=== PATIENT | female | born 1955 | race Caucasian/White ===

== ENCOUNTER 2016-09-13 09:47 | Emergency (ER) | payer OTHER ==
[~2016-09-13] VITALS: Ht 160 cm; Wt 66.1 kg
[~2016-09-13 09:47] MED LIST: ADVA250A INH; HYDR-3133 PO; IPRA17I INH; PRED20 PO; RISP2TAB SL; SERT-129 PO
[2016-09-13 09:57] VITALS: BP 107/72; PULSE 93; RESP 16; TEMP 98; O2SAT 99
--- NOTE | 2016-09-13 10:17 | PD ---
HPI Chief Complaint: Pain: Acute or Chronic Time Seen by Provider: 10:01 Travel History International Travel<30 days: No Contact w/Intl Traveler<30days: No Traveled to known affect area: No History of Present Illness HPI 60 year-old woman presents emergency department complaining of chest wall pain after she fell 3 weeks ago. State or fecal, tangled she fell forward landing on her chest. She has pain on both sides of her chest but more on the right than the left. Worse with coughing or deep breathing. Symptoms been persistent and not really getting better so she came in today. She does have some shortness of breath. She is a history of eczema and she is on steroids 20 mg every other day for quite some time. She has asthma but doesn't really have a lot of trouble with it. She otherwise has been feeling generally well and healthy. No other complaints. History Past Medical History Narrative Medical Eczema Asthma Bipolar disorder Menopausal: Yes Social History Alcohol Use: Yes (BEER, OCCASIONAL) Tobacco Use: Yes (1/2PK CIGARS) Allergies-Medications (Allergen,Severity, Reaction): Coded Allergies: Penicillin (Verified Allergy, Severe, Rash, 09/13/16) Ventolin (Verified Allergy, Severe, Swelling, 09/13/16) Sulfa (Verified Allergy, Unknown, 09/13/16) Reported Meds & Prescriptions Reported Meds & Active Scripts Active Reported Prednisone 10 Mg Tab 10 Mg PO EVERY OTHER DAY Risperidone M-Tab (Risperidone) 2 Mg Tab 2 Mg SL Q12HR Atrovent HFA 12.9 GM Inh (Ipratropium [place]) 17 Mcg/Act Aer 2 Puff INH TID Advair Diskus Inh (Fluticasone-Salmeterol Inh) 250-50 Mcg/Blist Aer 1 Puff INH BID Rinse mouth after use. Sertraline (Sertraline HCl) 100 Mg Tab 100 Mg PO DAILY Review of Systems Except as stated in HPI: all other systems reviewed are Neg Physical Exam Narrative GENERAL: Well-appearing 61-year-old woman, no acute distress. SKIN: Warm and dry. NECK: Trachea midline. No JVD. CARDIOVASCULAR: Regular rate and rhythm. No murmur appreciated. RESPIRATORY: No accessory muscle use. Clear to auscultation. Breath sounds equal bilaterally. GASTROINTESTINAL: Abdomen soft, non-tender, nondistended. Hepatic and splenic margins not palpable. MUSCULOSKELETAL: No obvious deformities. Some chest wall tenderness on the right. No ecchymosis or bruising. Data Data Last Documented VS Vital Signs Date Time Temp Pulse Resp B/P Pulse Ox O2 Delivery O2 Flow Rate FiO2 09/13/16 11:25 62 16 104/67 97 09/13/16 09:57 98.0 Orders Chest, Pa & Lat (09/13/16 ) [facility] Medical Decision Making Medical Screen Exam Complete: Yes Emergency Medical Condition: Yes Interpretation(s) Chest x-ray: Prominent but woke up with a heart. Minimal bibasilar atelectatic changes. Lungs are otherwise clear. Differential Diagnosis Chest wall pain, contusion, fracture, pneumothorax, other Narrative Course Medical decision-making 58-year-old presents emergent department with chest wall pain after falling 2 weeks ago. She likely had cracked ribs. We'll check x-ray rule out pneumothorax. Recommend continue supportive treatment. She states she's had some heartburn as well. She is on steroids daily that could be contributing. I don't see any evidence this is angina. Outpatient follow-up. Diagnosis Primary Impression: Chest wall pain Additional Instructions: Take extra strength Tylenol as needed for chest wall pain. Consider taking ranitidine when you're taking prednisone help with her heartburn. Return to the emergency department for any worsening chest pain, if he noticed her chest pain is worse with exertion, he develop any worsening shortness of breath, or if you have any other new or worsening symptoms. Disposition: 01 DISCHARGE HOME Condition: Stable Esau Franco MD Sep 13, 2016 10:17
[2016-09-13] MEDS ORDERED: PRED10 PO (10:18)
--- NOTE | 2016-09-13 11:09 | RADHPO ---
EXAM DATE/TIME: 09/13/2016 10:40 [facility] COMPARISON: No previous studies available for comparison. INDICATIONS : Chest pains. MEDICAL HISTORY : None. SURGICAL HISTORY : None. ENCOUNTER: Initial ACUITY: 3 weeks PAIN SCORE: 7/10 LOCATION: lower chest right side. FINDINGS: PA and lateral views of the chest demonstrate the lungs to be symmetrically aerated without evidence of mass, infiltrate or effusion. Minimal bibasilar atelectatic changes. Heart size is prominent but w ell compensated. Osseous structures are intact. CONCLUSION: 1. Prominent but well compensated heart. 2. Minimal bibasilar atelectatic changes. Lungs are otherwise clear. Meet Rodríguez MD on September 13, 2016 at 11:06 Board Certified Radiologist. This report was verified electronically.
[2016-09-13 11:25] VITALS: BP 104/67; PULSE 62; RESP 16; O2SAT 97
== END 2016-09-13 11:52 | disposition home or self-care (01) ==
LOC: PHEFT 09:47
DX: R07.89 Other chest pain (principal); J45.909 Unspecified asthma, uncomplicated; F17.290 Nicotine dependence, other tobacco product, uncomplicated; W19.XXXA Unspecified fall, initial encounter; Y93.9 Activity, unspecified; Y92.9 Unspecified place or not applicable; Y99.8 Other external cause status
CPT/HCPCS: 71020; 99283

== ENCOUNTER 2017-05-18 17:24 | Emergency (ER) | payer OTHER ==
[~2017-05-18 17:24] MED LIST changes: -HYDR-3133 PO; +PRED10 PO; -PRED20 PO
[2017-05-18 17:45] VITALS: BP 135/63; PULSE 98; RESP 18; TEMP 98.1; O2SAT 99
--- NOTE | 2017-05-18 18:12 | PD ---
HPI Chief Complaint: Injury Time Seen by Provider: 17:46 Travel History International Travel<30 days: No Contact w/Intl Traveler<30days: No Traveled to known affect area: No History of Present Illness HPI 62-year-old female here for evaluation of right shoulder and right elbow pain times 4 hours. She reports she slipped while going down the steps falling onto her right side against the wall. She denies head injury or loss of consciousness. She reports she did not fall to the ground. She denies paresthesia or weakness of the extremity. She has pain with range of motion of the shoulder and mild pain at the lateral aspect of the elbow. The pain is relieved with rest. She denies any other injuries. PFSH Past Medical History Asthma: Yes Bipolar Disorder: Yes Depression: Yes COPD: Yes Diminished Hearing: No Integumentary: Yes (ECZEMA) Immunizations Current: No Tetanus Vaccination: < 5 Years Influenza Vaccination: No ?: Not Menopausal: Yes Past Surgical History Abdominal Surgery: Yes (LT HERNIA REPAIR X 2) Cholecystectomy: Yes Eye Surgery: Yes (Premature bilateral cataracts-lens 44 yrs old) Hysterectomy: Yes (Partial) Social History Alcohol Use: Yes (socially ) Tobacco Use: Yes (3/4 ppd ) Substance Use: No Allergies-Medications (Allergen,Severity, Reaction): Coded Allergies: albuterol (Unverified Allergy, Severe, Swelling, 05/18/17) penicillin G (Unverified Allergy, Severe, Rash, 05/18/17) Sulfa (Sulfonamide Antibiotics) (Unverified Allergy, Unknown, 05/18/17) Reported Meds & Prescriptions Reported Meds & Active Scripts Active [place] (Hydrocodone-Acetaminophen) 5 Mg-325 Mg Tab 1 Tab PO Q6H PRN Reported Risperidone M-Tab (Risperidone) 2 Mg Tab 2 Mg SL Q12HR Atrovent HFA 12.9 GM Inh (Ipratropium [place]) 17 Mcg/Act Aer 2 Puff INH TID Sertraline (Sertraline HCl) 100 Mg Tab 100 Mg PO DAILY Review of Systems Except as stated in HPI: all other systems reviewed are Neg HENT: No: Headaches Cardiovascular: No: Chest Pain or Discomfort Respiratory: No: Shortness of Breath Gastrointestinal: No: Abdominal Pain Genitourinary: No: Dysuria Physical Exam Narrative GENERAL: Well-nourished, well-developed patient. SKIN: Focused skin assessment warm/dry. HEAD: Normocephalic. Atraumatic EYES: No scleral icterus. No injection or drainage. NECK: Supple, trachea midline. No cervical midline tenderness CARDIOVASCULAR: Regular rate and rhythm without murmurs, gallops, or rubs. Chest wall tenderness RESPIRATORY: Breath sounds equal bilaterally. No accessory muscle use. GASTROINTESTINAL: Abdomen soft, non-tender, nondistended. MUSCULOSKELETAL: No cyanosis, or edema. Attention to the right upper extremity : Tenderness of the anterior and lateral shoulder. No bony tenderness of the elbow. No deformity noted. The arm is held in slight flexion against the body. Limited abduction of the shoulder due to pain. 2+ distal pulses. Normal sensation. Brisk cap refill. BACK: No tenderness of the cervical, thoracic, lumbar spine. Without obvious deformity. No CVA tenderness. Data Data Last Documented VS Vital Signs Date Time Temp Pulse Resp B/P (MAP) Pulse Ox O2 Delivery O2 Flow Rate FiO2 05/18/17 17:48 Room Air 05/18/17 17:45 98.1 98 18 135/63 (87) 99 Orders Orders Shoulder, Complete (>2vws) (05/18/17 ) Elbow, Limited (Ap&Lat) (05/18/17 ) Support Splint (05/18/17 19:01) Ketorolac Inj (Toradol Inj) (05/18/17 19:15) MDM Medical Decision Making Medical Screen Exam Complete: Yes Emergency Medical Condition: Yes Differential Diagnosis fracture versus dislocation versus strain versus contusion Narrative Course 62-year-old female here with right shoulder and elbow pain after slip and fall landing on the nearby wall. She denies head injury or loss of consciousness. On exam she has tenderness to anterior aspect of the shoulder. No bony tenderness of the elbow. No deformity noted. Extremities neurovascularly intact. X-rays ordered and pending X-ray shoulder: Probable nondisplaced fracture of the greater tuberosity X-ray of right elbow: Elbow effusion may represent an occult fracture. X-ray findings discussed with patient. Elbow was reevaluated and is nontender to palpation and she has full range of motion. I do not believe she has a fracture within the elbow. Patient will be put in a sling. Pain medication. Follow-up with orthopedic. Diagnosis Primary Impression: Greater tuberosity of humerus fracture Qualified Codes: S42.254A - Nondisplaced fracture of greater tuberosity of right humerus, initial encounter for closed fracture Referrals: Orthopaedic Surgeon Additional Instructions: With a sling at all times until follow-up with orthopedic doctor. Take [id number] Motrin as needed for pain. Take the hydrocodone for severe pain. Call and make an appointment with the orthopedic doctor. Return to emergency department if he developed new or worsening symptoms. Scripts Hydrocodone-Acetaminophen ([place]) 5 Mg-325 Mg Tab 1 TAB PO Q6H Y for PAIN, #15 TAB 0 Refills Prov: Samy Ball MD 05/18/17 Disposition: DISCHARGE HOME Condition: Stable Laure Mercer May 18, 2017 18:12
--- NOTE | 2017-05-18 18:23 | RADRPT ---
EXAM DATE/TIME: 05/18/2017 18:00 [facility] COMPARISON: No previous studies available for comparison. INDICATIONS : Right shoulder pain post fall. MEDICAL HISTORY : None. SURGICAL HISTORY : None. ENCOUNTER: Initial ACUITY: 1 day PAIN SCORE: 8/10 LOCATION: Right upper extremity FINDINGS: 4 view examination demonstrates diffuse osteopenia. On the frontal views, there is a thin lucency wh ich parallels the greater tuberosity and may represent a nondisplaced fracture. The glenohumeral sherlyn nt is in normal alignment. The a.c. joint demonstrates mild changes. The visualized right ribs are intact. CONCLUSION: Probable nondisplaced fracture of the greater tuberosity. Stephen Acosta MD on May 18, 2017 at 18:20 Board Certified Radiologist. This report was verified electronically.
--- NOTE | 2017-05-18 18:25 | RADRPT ---
EXAM DATE/TIME: 05/18/2017 18:00 [facility] COMPARISON: No previous studies available for comparison. INDICATIONS : Right elbow pain post fall. MEDICAL HISTORY : None. SURGICAL HISTORY : None. ENCOUNTER: Initial ACUITY: 1 day PAIN SCORE: 8/10 LOCATION: Right upper extremity FINDINGS: Two view examination of the right elbow demonstrates no soft tissue swelling, fracture or dislocation . Bony mineralization is mildly decreased. There is a triangular configuration to the anterior fat pad suggesting possible elbow effusion. An amorphous oval opacity in the soft tissues superficial to the olecranon measures 3 mm. CONCLUSION: 1. Radiographic evidence suggesting an elbow effusion. Elbow effusion can be an indication of an occ ult radiographic fracture. 2. 3 mm amorphous density in the soft tissues about the olecranon may represent foreign body. Stephen Acosta MD on May 18, 2017 at 18:21 Board Certified Radiologist. This report was verified electronically.
[2017-05-18] MEDS ORDERED: NORC5TAB PO (19:00)
[2017-05-18] MEDS ORDERED: KETOROLAC TROMETHAMINE 60 MG/2 ML (IM) VIAL IM ONE (19:15)
== END 2017-05-18 19:18 | disposition home or self-care (01) ==
LOC: PHEFT 17:24
DX: S42.254A Nondisplaced fracture of greater tuberosity of right humerus, initial encounter for closed fracture (principal); W10.9XXA Fall (on) (from) unspecified stairs and steps, initial encounter
CPT/HCPCS: 73030; 73070; 96372; 99284; J1885

== ENCOUNTER 2017-12-11 10:24 | Inpatient (IN) | payer OTHER ==
[2017-12-11] VITALS (15 sets, daily range): BP systolic 95–143; BP diastolic 50–68; PULSE 61–79; RESP 16–20; TEMP 96–98.4; O2SAT 96–100
[~2017-12-11] VITALS: Ht 157.5 cm; Wt 67.1 kg
[~2017-12-11 10:24] MED LIST changes: -ADVA250A INH; +DUPI300S SQ; +NORC5TAB PO; -PRED10 PO
--- NOTE | 2017-12-11 11:05 | PD ---
HPI Chief Complaint: Abnormal Results Time Seen by Provider: 11:04 Travel History International Travel<30 days: No Contact w/Intl Traveler<30days: No Traveled to known affect area: No History of Present Illness HPI Patient states that she has been experiencing lightheadedness or dizziness for months now so she did not think that there was anything different. Patient went in for her regular 6-month checkup when she had blood work done. Her primary care doctor is Dr. Fredi Watson, and upon arriving at the clinic she was told that she needed to come to the ER immediately because of her abnormal labs. Apparently her hemoglobin was 4.5. Patient denies any abdominal pain, nausea, vomiting or diarrhea. However she does mention that she has seen intermittent black tarry stools on and off over the past few months. But they would usually resolve and so she did not think much of it. Patient states that she takes Naprosyn regularly at least once a day for shoulder arthritis. Allergy to sulfa albuterol penicillin Past medical history significant for bilateral cataract surgery, corrective lenses, asthma, COPD, left hernia repair 2, cholecystectomy, partial hysterectomy, bipolar disorder, eczema PFSH Past Medical History Asthma: Yes Bipolar Disorder: Yes Depression: Yes COPD: Yes Diminished Hearing: No Respiratory: Yes (Asthma) Integumentary: Yes (ECZEMA) Immunizations Current: No ?: Not Menopausal: Yes Past Surgical History Abdominal Surgery: Yes (LT HERNIA REPAIR X 2) Cholecystectomy: Yes Eye Surgery: Yes (Premature bilateral cataracts-lens 44 yrs old) Hysterectomy: Yes (Partial) Social History Alcohol Use: Yes (socially ) Tobacco Use: Yes (3/4 ppd ) Substance Use: No Allergies-Medications (Allergen,Severity, Reaction): Coded Allergies: albuterol (Unverified Allergy, Severe, Swelling, 12/11/17) PT states she is no longer allergic to it penicillin G (Unverified Allergy, Severe, Rash, 12/11/17) Sulfa (Sulfonamide Antibiotics) (Unverified Allergy, Unknown, 12/11/17) Reported Meds & Prescriptions Reported Meds & Active Scripts Active Reported Naproxen 500 Mg Tab 500 Mg PO BID PRN Risperidone M-Tab (Risperidone) 2 Mg Tab 2 Mg SL Q12HR Atrovent HFA 12.9 GM Inh (Ipratropium [place]) 17 Mcg/Act Aer 2 Puff INH TID Sertraline (Sertraline HCl) 100 Mg Tab 100 Mg PO DAILY Review of Systems General / Constitutional: No: Fever Eyes: No: Visual changes HENT: Positive: Lightheadedness Cardiovascular: No: Chest Pain or Discomfort Respiratory: No: Shortness of Breath Gastrointestinal: No: Abdominal Pain Genitourinary: No: Dysuria Musculoskeletal: No: Pain Skin: No Rash Neurologic: No: Weakness Psychiatric: No: Depression Endocrine: No: Polydipsia Hematologic/Lymphatic: No: Easy Bruising Physical Exam Narrative GENERAL: SKIN: Warm and dry. HEAD: Atraumatic. Normocephalic. EYES: Pupils equal and round. No scleral icterus. No injection or drainage. ENT: No nasal bleeding or discharge. Mucous membranes pink and moist. NECK: Trachea midline. No JVD. CARDIOVASCULAR: Regular rate and rhythm. RESPIRATORY: No accessory muscle use. Clear to auscultation. Breath sounds equal bilaterally. GASTROINTESTINAL: Abdomen soft, non-tender, nondistended. RN at bedside, no external fissures or hemorrhoids that were actively bleeding. On digital rectal exam stool was not bloody red but guaiac trace positive MUSCULOSKELETAL: Extremities without clubbing, cyanosis, or edema. No obvious deformities. NEUROLOGICAL: Awake and alert. No obvious cranial nerve deficits. Motor grossly within normal limits. Five out of 5 muscle strength in the arms and legs. Normal speech. PSYCHIATRIC: Appropriate mood and affect; insight and judgment normal. Data Data Last Documented VS Vital Signs Date Time Temp Pulse Resp B/P (MAP) Pulse Ox O2 Delivery O2 Flow Rate FiO2 12/11/17 11:46 16 97 Room Air 12/11/17 11:07 66 12/11/17 10:51 98.4 96/50 (65) Orders Orders Electrocardiogram (12/11/17 11:05) Complete Blood Count With Diff (12/11/17 11:05) Comprehensive Metabolic Panel (12/11/17 11:05) Ckmb (Isoenzyme) Profile (12/11/17 11:05) Troponin I (12/11/17 11:05) Prothrombin Time / Inr (Pt) (12/11/17 11:05) Act Partial Throm Time (Ptt) (12/11/17 11:05) Lipase (12/11/17 11:05) Thyroid Stimulating Hormone (12/11/17 11:05) Chest, Single Ap (12/11/17 11:05) Iv Access Insert/Monitor (12/11/17 11:05) Ecg Monitoring (12/11/17 11:05) Oximetry (12/11/17 11:05) Type And Screen (12/11/17 11:05) Labs Laboratory Tests Test 12/11/17 11:35 [facility] Medical Decision Making Medical Screen Exam Complete: Yes Emergency Medical Condition: Yes Medical Record Reviewed: Yes Interpretation(s) EKG shows a normal sinus rhythm at 61 bpm with sinus arrhythmia, right bundle branch block, left anterior fascicular block but without any ST elevation elev pattern,nor any T wave inversions. Differential Diagnosis Anemia versus STEMI versus non-STEMI versus dehydration versus GI bleed Mario Russell MD Dec 11, 2017 11:05
[2017-12-11] MEDS ORDERED: NAPR500T2 PO (11:23)
--- NOTE | 2017-12-11 11:42 | RADRPT ---
EXAM DATE: 12/11/2017 11:15 AM EDT AGE/SEX: 62 years / Female INDICATIONS: Shortness of breath. CLINICAL DATA: This is the patient's initial encounter. Patient reports that signs and symptoms have been present for 3 months and indicates a pain score of 0/10. MEDICAL/SURGICAL HISTORY: Asthma. Chronic obstructive pulmonary disease. Inguinal hernia repai r. COMPARISON: [facility], CHEST SINGLE AP, 12/04/2014. . FINDINGS: A single AP view of the chest demonstrates the lungs to be symmetrically aerated without evidence of mass, infiltrate or effusion. The heart size is mildly enlarged but stable.. Osseous structures are intact. No significant changes. CONCLUSION: No acute intrathoracic disease. Stable cardiomegaly. No significant changes. Electronically signed by: Bhanu Hurst MD 12/11/2017 11:41 AM EDT
[2017-12-11 11:55] LABS: MEAN CELL VOLUME 60.5 FL (80.0-100.0); MEAN CORPUSCULAR HEMOGLOBIN 17.6 PG (27.0-34.0); MEAN PLATELET VOLUME 7.6 FL (7.0-11.0); PLATELET COUNT 278 TH/MM3 (150-450); RED BLOOD COUNT 2.65 MIL/MM3 (4.00-5.30); RED CELL DISTRIBUTION WIDTH 21.9 % (11.6-17.2); WHITE BLOOD COUNT 2.8 TH/MM3 (4.0-11.0)
[2017-12-11 12:18] LABS: MEAN CORPUSCULAR HGB CONC 29.1 % (32.0-36.0)
[2017-12-11 12:22] LABS: HEMOGLOBIN 4.7 GM/DL (11.6-15.3)
[2017-12-11 12:25] LABS: CHLORIDE 103 MEQ/L (98-107); SODIUM (NA) 135 MEQ/L (136-145)
[2017-12-11 12:28] LABS: CALCIUM 7.9 MG/DL (8.5-10.1)
[2017-12-11 12:29] LABS: ALBUMIN 3.6 GM/DL (3.4-5.0); BICARBONATE 23.9 MEQ/L (21.0-32.0); BLOOD UREA NITROGEN 10 MG/DL (7-18); GLUCOSE,RANDOM 84 MG/DL (74-106)
[2017-12-11 12:30] LABS: PROTHROMBIN TIME - PATIENT 10.6 SEC (9.8-11.6)
[2017-12-11 12:32] LABS: ALT (GPT) 13 U/L (10-53); AST (GOT) 9 U/L (15-37); CREATININE 0.54 MG/DL (0.50-1.00); GLOMERULAR FILTRATION RATE 114 ML/MIN (>89)
[2017-12-11 12:33] LABS: TOTAL BILIRUBIN ADULT 0.4 MG/DL (0.2-1.0); TOTAL PROTEIN 6.6 GM/DL (6.4-8.2)
[2017-12-11 12:34] LABS: ALKALINE PHOSPHATASE 61 U/L (45-117)
[2017-12-11 12:37] LABS: TROPONIN I LESS THAN 0.02 NG/ML (0.02-0.05)
[2017-12-11] MEDS ORDERED: SODIUM CHLOR 0.9% 250 ML INJ 250 ML IV ONE (13:00)
[2017-12-11] MEDS ORDERED: BISACODYL 10 MG SUPP RECTAL PRN (13:00)
[2017-12-11] MEDS ORDERED: MAGNESIUM HYDROXIDE SUSP 30 ML CUP PO PRN (13:00)
[2017-12-11] MEDS ORDERED: SODIUM CHLORIDE 0.9% FLUSH 10 ML FLUSH IV FLUSH PRN (13:00)
[2017-12-11] MEDS ORDERED: NALOXONE HCL 0.4 MG/ML AMP IV PUSH PRN (13:00)
[2017-12-11] MEDS ORDERED: ACETAMINOPHEN 325 MG TAB PO PRN (13:00)
[2017-12-11] MEDS ORDERED: LACTULOSE SYRUP 20 GM/30 ML CUP PO PRN (13:00)
[2017-12-11] MEDS ORDERED: SENNOSIDES 8.6 MG TAB PO PRN (13:00)
[2017-12-11 13:02] LABS: LYMPHOCYTES 22 % (9-44); MONOCYTES 6 % (0-8); POLYS (SEG NEUTROPHILS) 70 % (16-70)
[2017-12-11 13:03] LABS: ROULEAUX PRESENT (NORMAL)
--- NOTE | 2017-12-11 16:35 | HHI.HP ---
HPI Service [facility] Primary Care Physician Denver Watson MD (Paul) Admission Diagnosis SEVERE ANEMIA, TRACE GI BLEED Diagnoses: Chief Complaint: Anemia, dizziness, lightheadedness Travel History International Travel<30 Days: No Contact w/Intl Traveler <30 Da: No Traveled to Known Affected Are: No History of Present Illness Ms. Vela is a pleasant 62-year-old female with a history of bipolar disorder, asthma who presents to the emergency department due to low hemoglobin count noted by her psychiatrist. Patient had blood work on 2017 and subsequently she went to see her psychiatrist on 12/10/2017. Her psychiatrist advised patient to seek medical help due to hemoglobin 4.5. Upon further discussion, patient reports that she has been feeling weak, dizziness and lightheadedness as well as dyspnea for at least 2 months. She was on iron pills but stopped taking it 2 weeks ago. She reports some bleed when after bowel movement due to hemorrhoids. However she does not report any overt bleeding or dark stool. She has not had EGD or colonoscopy in many years. Review of Systems Except as stated in HPI: all other systems reviewed are Neg Past Family Social History Past Medical History Asthma, depression, bipolar disorder Past Surgical History Hernia repair 2, cholecystectomy, premature bilateral cataract surgery, partial hysterectomy Reported Medications Naproxen 500 Mg Tab 500 Mg PO BID PRN Risperidone M-Tab (Risperidone) 2 Mg Tab 2 Mg SL Q12HR Atrovent HFA 12.9 GM Inh (Ipratropium [place]) 17 Mcg/Act Aer 2 Puff INH TID Sertraline (Sertraline HCl) 100 Mg Tab 100 Mg PO DAILY Allergies: Coded Allergies: albuterol (Unverified Allergy, Severe, Swelling, 12/11/17) PT states she is no longer allergic to it penicillin G (Unverified Allergy, Severe, Rash, 12/11/17) Sulfa (Sulfonamide Antibiotics) (Unverified Allergy, Unknown, 12/11/17) Family History Dad from [place]. Mother had anemia. Social History Patient smokes three fourth of a packet of cigarettes every day. She also drinks socially. Denies illicit drug use. Physical Exam Vital Signs Vital Signs Date Time Temp Pulse Resp B/P (MAP) Pulse Ox O2 Delivery O2 Flow Rate FiO2 12/11/17 15:16 64 16 95/52 (66) 97 12/11/17 15:00 67 16 98 Room Air 12/11/17 14:42 68 16 114/57 (76) 98 Room Air 12/11/17 13:30 79 16 117/64 (81) 98 Room Air 12/11/17 13:00 67 16 97 Room Air 12/11/17 12:30 74 16 115/66 (82) 96 Room Air 12/11/17 11:46 16 97 Room Air 12/11/17 11:30 61 16 111/62 (78) 96 Room Air 12/11/17 11:07 66 16 97 Room Air 12/11/17 10:51 98.4 64 16 96/50 (65) 97 Physical Exam GENERAL: This is a well-nourished, well-developed patient, in no apparent distress. SKIN: No rashes, ecchymoses or lesions. Warm and dry. HEAD: Atraumatic. Normocephalic. No temporal or scalp tenderness. EYES: Pupils equal round and reactive. No injection or drainage. ENT: Nose without bleeding, purulent drainage or septal hematoma. Airway patent. NECK: Trachea midline. No lymphadenopathy. Supple, nontender, no meningeal signs. CARDIOVASCULAR: Regular rate and rhythm without murmurs, gallops, or rubs. No JVD. RESPIRATORY: Clear to auscultation. Breath sounds equal bilaterally. No wheezes , rales, or rhonchi. GASTROINTESTINAL: Abdomen soft, non-tender, nondistended. No guarding. MUSCULOSKELETAL: Extremities without clubbing, cyanosis, or edema. NEUROLOGICAL: Awake and alert. Cranial nerves II through XII intact. No focal neurological deficits. Normal speech. Laboratory Laboratory Tests Test 12/11/17 11:35 12/11/17 12:12 White Blood Count 2.8 Red Blood Count 2.65 Hemoglobin 4.7 Hematocrit 16.0 Mean Corpuscular Volume 60.5 Mean Corpuscular Hemoglobin 17.6 Mean Corpuscular Hemoglobin Concent 29.1 Red Cell Distribution Width 21.9 Platelet Count 278 Mean Platelet Volume 7.6 CBC Comment AUTO DIFF Differential Total Cells Counted 100 Neutrophils % (Manual) 70 Lymphocytes % 22 Monocytes % 6 Eosinophils % 2 Neutrophils # (Manual) 2.0 Differential Comment FINAL DIFF MANUAL Rouleau PRESENT Prothrombin Time 10.6 Prothromb Time International Ratio 1.0 Activated Partial Thromboplast Time 24.1 Blood Urea Nitrogen 10 Creatinine 0.54 Random Glucose 84 Total Protein 6.6 Albumin 3.6 Calcium Level 7.9 Alkaline Phosphatase 61 Aspartate Amino Transf (AST/SGOT) 9 Alanine Aminotransferase (ALT/SGPT) 13 Total Bilirubin 0.4 Sodium Level 135 Potassium Level 4.2 Chloride Level 103 Carbon Dioxide Level 23.9 Anion Gap 8 Estimat Glomerular Filtration Rate 114 Total Creatine Kinase 57 Troponin I LESS THAN 0.02 Lipase 151 Thyroid Stimulating Hormone 3rd Gen 2.570 Result Diagram: 12/11/17 1135 12/11/17 1135 Imaging Last Impressions Chest X-Ray 12/11/17 1105 Signed Impressions: CONCLUSION: No acute intrathoracic disease. Stable cardiomegaly. No significant changes. Caprini VTE Risk Assessment Caprini VTE Risk Assessment: No/Low Risk (score <= 1) Caprini Risk Assessment Model Point Value = 1 Point Value = 2 Point Value = 3 Point Value = 5 Age 41-60 Minor surgery BMI > 25 kg/m2 Swollen legs Varicose veins or History of unexplained or recurrent spontaneous Oral contraceptives or hormone replacement Sepsis (< 1 month) Serious lung disease, including pneumonia (< 1 month) Abnormal pulmonary function Acute myocardial infarction Congestive heart failure (< 1 month) History of inflammatory bowel disease Medical patient at bed rest Age 61-74 Arthroscopic surgery Major open surgery (> 45 min) Laparoscopic surgery (> 45 min) Malignancy Confined to bed (> 72 hours) Immobilizing plaster cast Central venous access Age >= 75 History of VTE Family history of VTE Factor V Leiden Prothrombin [id number] Lupus anticoagulant Anticardiolipin antibodies Elevated serum homocysteine Heparin-induced thrombocytopenia Other congenital or acquired thrombophilia Stroke (< 1 month) Elective arthroplasty Hip, pelvis, or leg fracture Acute spinal cord injury (< 1 month) Prophylaxis Regimen Total Risk Factor Score Risk Level Prophylaxis Regimen 0-1 Low Early ambulation 2 Moderate Order ONE of the following: *Sequential Compression Device (SCD) *Heparin 5000 units SQ BID 3-4 Higher Order ONE of the following medications: *Heparin 5000 units SQ TID *Enoxaparin/Lovenox 40 mg SQ daily (WT < 150 kg, CrCl > 30 mL/min) *Enoxaparin/Lovenox 30 mg SQ daily (WT < 150 kg, CrCl > 10-29 mL/min) *Enoxaparin/Lovenox 30 mg SQ BID (WT < 150 kg, CrCl > 30 mL/min) AND/OR *Sequential Compression Device (SCD) 5 or more Highest Order ONE of the following medications: *Heparin 5000 units SQ TID (Preferred with Epidurals) *Enoxaparin/Lovenox 40 mg SQ daily (WT < 150 kg, CrCl > 30 mL/min) *Enoxaparin/Lovenox 30 mg SQ daily (WT < 150 kg, CrCl > 10-29 mL/min) *Enoxaparin/Lovenox 30 mg SQ BID (WT < 150 kg, CrCl > 30 mL/min) AND *Sequential Compression Device (SCD) Assessment and Plan Problem List: (1) Symptomatic anemia ICD Code: D64.9 - Anemia, unspecified (2) Bipolar disorder ICD Code: F31.9 - Bipolar disorder, unspecified Assessment and Plan Ms. Vela is a pleasant 62-year-old female who presented to the emergency department due to low hemoglobin count noted by her psychiatrist. Patient has been noticing fatigue, dizziness and lightheadedness in the last 2 months. Hemoglobin on admission was 4.7. Symptomatic anemia likely due to GI blood loss -2 units of PRBCs ordered by the emergency room provider. -We will obtain iron panel, ferritin level, LDH, haptoglobin and reticulocyte count. -We will also obtain a peripheral smear reviewed by the pathologist. -GI consult for possible EGD and colonoscopy. Depression Bipolar disorder -Continue sertraline 100 mg p.o. daily and risperidone 2 mg sublingual every 12 hours. Full code. SCDs. Telemetry due to Hgb 4.7. Will d/c Telemetry once hgb improves. Physician Certification 2 Midnight Certification Type: Admission for Inpatient Services Order for Inpatient Services The services are ordered in accordance with Medicare regulations or non- Medicare payer requirements, as applicable. In the case of services not specified as inpatient-only, they are appropriately provided as inpatient services in accordance with the 2-midnight benchmark. Estimated LOS (days): 2 days is the estimated time the patient will need to remain in the hospital, assuming treatment plan goals are met and no additional complications. Post-Hospital Plan: Home Anneliese Zhao DO Dec 11, 2017 16:35
[2017-12-11 18:26] LABS: % SATURATION IRON PROFILE 1.9 % (20-50); FERRITIN 2 NG/ML (8-252); IRON (FE) 9 MCG/DL (50-170); TOTAL IRON BINDING CAPACITY 475 MCG/DL (250-450)
[2017-12-11 19:57] LABS: RETIC # 60.6 MIL/L (20.0-150.0); RETIC % 2.2 % (0.4-3.0)
[2017-12-11] MEDS: SODIUM CHLORIDE 0.9% FLUSH 10 ML FLUSH IV FLUSH SCH (20:56)
[2017-12-11] MEDS: risperiDONE ODT 1 MG TAB SL SCH (20:56)
[2017-12-12] VITALS (12 sets, daily range): BP systolic 104–142; BP diastolic 56–77; PULSE 62–80; RESP 16–20; TEMP 96–98.7; O2SAT 93–99
[2017-12-12 06:44] LABS: HEMATOCRIT 22.5 % (35.0-46.0)
[2017-12-12 07:20] LABS: HEMOGLOBIN 6.7 GM/DL (11.6-15.3)
[2017-12-12] MEDS ORDERED: SERTRALINE HCL 100 MG TAB PO SCH (09:00)
[2017-12-12] MEDS: SODIUM CHLORIDE 0.9% FLUSH 10 ML FLUSH IV FLUSH SCH (09:05)
[2017-12-12] MEDS: risperiDONE ODT 1 MG TAB SL SCH (09:05)
[2017-12-12] MEDS ORDERED: ACETAMINOPHEN 325 MG TAB PO PRN (10:15)
[2017-12-12] MEDS ORDERED: diphenhydrAMINE HCL 25 MG CAP PO PRN (10:15)
[2017-12-12] MEDS ORDERED: SODIUM CHLOR 0.9% 250 ML INJ 250 ML IV ONE (10:15)
--- NOTE | 2017-12-12 10:23 | HHI.PR ---
Subjective Remarks Follow-up for iron deficiency anemia. Patient currently feels better after receiving 2 units of PRBCs. No fever or chills. Hemoglobin 6.7 this morning. On admission her hemoglobin was 4.7. Objective Vitals Vital Signs Date Time Temp Pulse Resp B/P (MAP) Pulse Ox O2 Delivery O2 Flow Rate FiO2 12/12/17 08:54 97.2 62 16 123/76 (92) 97 12/12/17 08:19 98 21 12/12/17 04:00 97.7 69 20 104/56 (72) 96 12/12/17 00:00 96.0 65 20 127/70 (89) 99 12/11/17 21:25 97.4 70 20 128/68 (88) 100 12/11/17 21:25 97.4 70 20 128/68 100 12/11/17 21:14 65 12/11/17 21:07 97.3 67 18 110/64 97 12/11/17 20:55 97.3 67 18 110/64 (79) 97 12/11/17 20:45 96 21 12/11/17 20:00 96.0 72 18 138/67 (90) 100 12/11/17 17:02 97.5 68 16 143/67 100 12/11/17 15:16 64 16 95/52 (66) 97 12/11/17 15:00 67 16 98 Room Air 12/11/17 14:42 68 16 114/57 (76) 98 Room Air 12/11/17 14:15 97 21 12/11/17 13:30 79 16 117/64 (81) 98 Room Air 12/11/17 13:00 67 16 97 Room Air 12/11/17 12:30 74 16 115/66 (82) 96 Room Air 12/11/17 11:46 16 97 Room Air 12/11/17 11:30 61 16 111/62 (78) 96 Room Air 12/11/17 11:07 66 16 97 Room Air 12/11/17 10:51 98.4 64 16 96/50 (65) 97 I/O 12/11/1718 12/11/17 12/12/17 12/12/17 12/12/17 07:00 15:00 23:00 07:00 15:00 23:00 Intake Total 370 ml 1352 ml 240 ml Balance 370 ml 1352 ml 240 ml Intake Oral 960 ml 240 ml Packed Cells 360 ml 382 ml Blood Product IV Normal Saline Flush 10 ml 10 ml # Voids 4 4 # Bowel Movements 1 1 Result Diagram: 12/12/17 0600 12/11/17 1135 Imaging Last Impressions Chest X-Ray 12/11/17 1105 Signed Impressions: CONCLUSION: No acute intrathoracic disease. Stable cardiomegaly. No significant changes. Objective Remarks GENERAL: Alert, oriented 3, NAD. SKIN: Warm and dry. HEAD: Normocephalic. EYES: No scleral icterus. No injection or drainage. NECK: Supple, trachea midline. No JVD or lymphadenopathy. CARDIOVASCULAR: Regular rate and rhythm without murmurs, gallops, or rubs. RESPIRATORY: Breath sounds equal bilaterally. No accessory muscle use. GASTROINTESTINAL: Abdomen soft, non-tender, nondistended. MUSCULOSKELETAL: No cyanosis, or edema. BACK: Nontender without obvious deformity. No CVA tenderness. Procedures None A/P Problem List: (1) Symptomatic anemia ICD Code: D64.9 - Anemia, unspecified (2) Bipolar disorder ICD Code: F31.9 - Bipolar disorder, unspecified Assessment and Plan Ms. Vela is a pleasant 62-year-old female who presented to the emergency department due to low hemoglobin count noted by her psychiatrist. Patient has been noticing fatigue, dizziness and lightheadedness in the last 2 months. Hemoglobin on admission was 4.7. Symptomatic anemia likely due to GI blood loss Iron deficiency anemia -Hgb improved to 6.7. Will give one more unit today. -Iron studies indicate iron deficiency anemia. -GI consult for possible EGD and colonoscopy. If unremarkable, patient may need outpatient capsule endoscopy. -After GI procedures will consider starting patient on iron supplements. Depression Bipolar disorder -Continue sertraline 100 mg p.o. daily and risperidone 2 mg sublingual every 12 hours. Full code. SCDs. Discontinue telemetry Anneliese Zhao DO Dec 12, 2017 10:22
[2017-12-12] MEDS ORDERED: PEG (High)/E-LYTE SOLN 4000 ML BTL PO ONE (12:30)
--- NOTE | 2017-12-12 14:06 | EKG ---
Date Performed: 12/11/2017 Time Performed: 11:19:14 PTAGE: 62 years EKG: Sinus rhythm WITH SINUS ARRHYTHMIA RIGHT BUNDLE BRANCH BLOCK LEFT ANTERIOR FASCICULAR BLOCK ABNORMAL ECG PREVIOUS TRACING : 12/04/2014 11.01 DOCTOR: Esau Corado Interpretating Date/Time 12/12/2017 14:04:33
[2017-12-12] MEDS ORDERED: CALCIUM CARBONATE 500 MG CHEWABLE TAB CHEW PRN (14:15)
[2017-12-12 16:49] LABS: HEMATOCRIT 26.6 % (35.0-46.0); HEMOGLOBIN 8.2 GM/DL (11.6-15.3)
[2017-12-12] MEDS ORDERED: FERR325T18 PO (16:49)
== END 2017-12-12 17:46 | disposition home or self-care (01) | DRG 812 ==
LOC: PHED 10:24 → PHEDA 12:52 → OBSVTOIN 12:57 → PH3B 15:21
PROVIDERS: ADMIT Hospitalist; ATTEND Hospitalist
DX: D50.0 Iron deficiency anemia secondary to blood loss (chronic) (principal); K92.2 Gastrointestinal hemorrhage, unspecified; I51.7 Cardiomegaly; J44.9 Chronic obstructive pulmonary disease, unspecified; F31.9 Bipolar disorder, unspecified; L30.9 Dermatitis, unspecified; K64.9 Unspecified hemorrhoids; M19.019 Primary osteoarthritis, unspecified shoulder; F17.210 Nicotine dependence, cigarettes, uncomplicated; Z88.2 Allergy status to sulfonamides; Z79.1 Long term (current) use of non-steroidal anti-inflammatories (NSAID); Z82.49 Family history of ischemic heart disease and other diseases of the circulatory system; Z79.899 Other long term (current) drug therapy
CPT/HCPCS: 36430; 71045; 80053; 82550; 82728; 83010; 83540; 83550; 83615; 83690; 84443; 84484; 85007; 85014; 85018; 85027; 85044; 85610; 85730; 86850; 86900; 86901; 86920; 93005; J7050; P9016